=== PATIENT | female | born 1990 | race Caucasian/White ===

== ENCOUNTER 2019-10-18 06:00 | Day surgery (SDC) | payer OTHER ==
[~2019-10-18 06:00] MED LIST: ALLEGRA-D 12 H1 EACH PO; SPRINTEC 28 DA1 EACH PO
[2019-10-18] MEDS ORDERED: ASA325 MG PO (12:08)
[2019-10-18] MEDS ORDERED: PERCOCET 5-3251 EACH PO (12:08)
[2019-10-18] MEDS ORDERED: DUI500 PO (12:08)
== END 2019-10-18 17:10 | disposition home or self-care (01) ==
LOC: CIR.AMB 06:00
DX: S82.852A Displaced trimalleolar fracture of left lower leg, initial encounter for closed fracture (principal); S93.04XA Dislocation of right ankle joint, initial encounter; S93.422A Sprain of deltoid ligament of left ankle, initial encounter; S93.492A Sprain of other ligament of left ankle, initial encounter; S93.02XA Subluxation of left ankle joint, initial encounter